=== PATIENT | male | born 1980 | race Caucasian/White ===

== ENCOUNTER 2017-12-20 13:43 | Inpatient (IN) | payer MEDICAID, OTHER ==
[2017-12-20 14:03] VITALS: BMI 25.0
--- NOTE | 2017-12-20 14:42 | RAD ---
Date of service: 12/20/2017 HISTORY: pes COMPARISON: 04/24/2014 FINDINGS: LUNGS: No active pulmonary disease. PLEURA: No significant pleural effusion identified, no pneumothorax apparent. CARDIOVASCULAR: No aortic atherosclerotic calcification present. Normal cardiac size. No pulmonary vascular congestion. OSSEOUS STRUCTURES: No significant abnormalities. VISUALIZED UPPER ABDOMEN: Normal. OTHER FINDINGS: None. IMPRESSION: No active disease.
[2017-12-20 15:26] LABS: URINE BILIRUBIN NEGATIVE (NEGATIVE); URINE BLOOD NEGATIVE (NEGATIVE); URINE GLUCOSE (UA) NEGATIVE (NEGATIVE); URINE LEUKOCYTE ESTERASE NEGATIVE Leu/uL (NEGATIVE); URINE PROTEIN NEGATIVE mg/dL (<30 mg/dL); URINE UROBILINOGEN 0.2 E.U./dL (<1 E.U./dL)
[2017-12-20 15:27] LABS: URINE APPEARANCE CLEAR (CLEAR); URINE COLOR YELLOW (YELLOW)
[2017-12-20 15:52] LABS: BASO # 0.02 K/mm3 (0.0-2.0); BASO % 0.5 % (0.0-3.0); EOS # 0.1 (0.0-0.7); EOS % 1.4 % (1.5-5.0); GRAN # 1.54 (1.4-6.5); GRAN % 41.9 % (50.0-68.0); HEMOGLOBIN 14.1 g/dL (14.0-18.0); LYMPH # 1.6 (1.2-3.4); LYMPH % 43.1 % (22.0-35.0); MEAN CELL VOLUME 87.6 fl (80.0-105.0); MEAN CORPUSCULAR HEMOGLOBIN 28.8 pg (25.0-35.0); MEAN CORPUSCULAR HGB CONC 32.9 g/dl (31.0-37.0); MEAN PLATELET VOLUME 9.6 fl (7.0-11.0); MONO # 0.5 (0.1-0.6); MONO % 13.1 % (1.0-6.0); RBC 4.9 10^6/uL (3.5-6.1); RED CELL DISTRIBUTION WIDTH 13.3 % (11.5-14.5); WHITE BLOOD COUNT 3.7 10^3/uL (4.5-11.0)
[2017-12-20 15:54] LABS: BARBITURATES, UR NEGATIVE (NEGATIVE); BENZODIAZEPINES, UR NEGATIVE (NEGATIVE); OPIATES, UR NEGATIVE (NEGATIVE); PHENCYCLIDINE, UR NEGATIVE (NEGATIVE)
[2017-12-20 16:00] LABS: ACETAMINOPHEN < 10.0 ug/ml (10.0-20.0); SALICYLATE < 1 mg/dL (2.0-20.0)
[2017-12-20 16:01] LABS: ALB/GLOB RATIO 1.3 (1.1-1.8); ALBUMIN 4.4 g/dL (3.0-4.8); ALT/SGPT 35 U/L (7-56); AST/SGOT 24 U/L (17-59); BLOOD UREA NITROGEN 13 mg/dL (7-21); CALCIUM 9.3 mg/dL (8.4-10.5); GFR NON-AFRICAN AMERICAN > 60
--- NOTE | 2017-12-20 16:10 | ED PDOC ---
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 Patient states his neighbor told the police that he has been acting strange. Patient denies headaches dizziness or weakness. Denies fevers or chills. Patient states he is really not sure why he is here. Patient states he was just throwing the garbage out in the next thing he knew the police were at his house. Patient denies suicidal or homicidal ideations. No dizziness or weakness. No other complaints Past Medical History - Provider Review Nursing Documentation Reviewed: Yes - Travel History Have you recently traveled outside [place] w/in the past 3 mons?: No - Past History Past History: No Previous - Psychiatric Hx Psychophysiologic Disorder: Yes Hx Substance Use: No Other/Comment: previous psych admission at [facility] [place] Family/Social History - Physician Review Nursing Documentation Reviewed: Yes Family/Social History: Unknown Family HX Smoking Status: Current Some Days Smoker Hx Alcohol Use: No Hx Substance Use: No Allergies/Home Meds Allergies/Adverse Reactions: Allergies No Known Allergies Allergy (Verified 09/29/15 11:12) Review of Systems - Review of Systems Constitutional: absent: Fatigue, Fevers Respiratory: absent: SOB, Cough Cardiovascular: absent: Chest Pain, Palpitations Gastrointestinal: absent: Abdominal Pain, Constipation, Diarrhea, Nausea, Vomiting Genitourinary Male: absent: Dysuria, Frequency, Hematuria Musculoskeletal: absent: Arthralgias, Back Pain, Neck Pain Skin: absent: Rash, Pruritis Neurological: absent: Headache, Dizziness Psychiatric: absent: Anxiety, Depression, Suicidal Ideation Physical Exam Vital Signs Reviewed: Yes Vital Signs Temp Pulse Resp BP Pulse Ox 12/20/17 14:03 98.5 F 89 18 126/78 98 Temperature: Afebrile Blood Pressure: Normal Pulse: Regular Respiratory Rate: Normal Appearance: Positive for: Well-Appearing, Non-Toxic, Comfortable Pain Distress: None Mental Status: Positive for: Alert and Oriented X 3 - Systems Exam Head: Present: Atraumatic Mouth: Present: Moist Mucous Membranes Neck: Present: Normal Range of Motion Respiratory/Chest: Present: Clear to Auscultation, Good Air Exchange. No: Respiratory Distress, Accessory Muscle Use Cardiovascular: Present: Regular Rate and Rhythm, Normal S1, S2. No: Murmurs Abdomen: No: Tenderness, Distention Upper Extremity: Present: Normal ROM Lower Extremity: Present: Normal ROM Neurological: Present: GCS=15, Speech Normal Skin: Present: Warm, Dry, Normal Color. No: Rashes Psychiatric: Present: Alert, Oriented x 3 Medical Decision Making ED Course and Treatment: 12/20/17 16:06 Patient is nontoxic well-appearing in no distress vital signs are stable. CBC WNL CMP WNL Tylenol WNL Salicylate WNL Alcohol level WNL Urine drug screen + marijuana UA; wnl cxr: wnl ekg: Normal sinus rhythm at 62 bpm normal axis normal intervals no ST elevations pt is medically cleared for PES evaluation Patient was seen and evaluated by PES screener: alexx. Patient signed voluntarily for psychiatric admission Impression; psychotic disorder NOS Admit to behavioral health floor behavioral health - Lab Interpretations Lab Results: 12/20/17 15:30 12/20/17 15:30 Lab Results 12/20/17 15:30: Alcohol, Quantitative < 10 12/20/17 15:30: Salicylates < 1 L, Acetaminophen < 10.0 L 12/20/17 15:30: Sodium 138, Potassium 3.9, Chloride 104, Carbon Dioxide 27, Anion Gap 11, BUN 13, Creatinine 0.7 L, Est GFR ( Amer) > 60, Est GFR (No n-Af Amer) > 60, Random Glucose 91, Calcium 9.3, Total Bilirubin 0.6, AST 24, ALT 35, Alkaline Phosphatase 50, Total Protein 7.8, Albumin 4.4, Globulin 3.4, Albumin/Globulin Ratio 1.3 12/20/17 15:30: WBC 3.7 L, RBC 4.90, Hgb 14.1, Hct 42.9, MCV 87.6, MCH 28.8, MCHC 32.9, RDW 13.3, Plt Count 239, MPV 9.6, Gran % 41.9 L, Lymph % (Auto) 43.1 H, [place] % (Auto) 13.1 H, Eos % (Auto) 1.4 L, Baso % (Auto) 0.5, Gran # 1.54, Lymph # (Auto) 1.6, Bound[place] # (Auto) 0.5, Eos # (Auto) 0.1, Baso # (Auto) 0.02 12/20/17 14:30: Urine Opiates Screen Negative, Urine Methadone Screen Negative, Ur Barbiturates Screen Negative, Ur Phencyclidine Scrn Negative, Ur Amphetamines Screen Negative, U Benzodiazepines Scrn Negative, U Oth Cocaine Metabols Negative, U Cannabinoids Screen Positive H 12/20/17 14:30: Urine Color Yellow, Urine Appearance Clear, Urine pH 6.0, Ur Specific [place] 1.025, Urine Protein Negative, Urine Glucose (UA) Negative, Urine Ketones Trace H, Urine Blood Negative, Urine Nitrate Negative, Urine Bilirubin Negative, Urine Urobilinogen 0.2, Ur Leukocyte Esterase Negative - RAD Interpretation Radiology Orders: 12/20/17 14:14 CHEST PORTABLE [RAD] Stat Disposition/Present on Arrival - Present on Arrival Any Indicators Present on Arrival: No History of DVT/PE: No History of Uncontrolled Diabetes: No Urinary Catheter: No History of Decub. Ulcer: No History Surgical Site Infection Following: None - Disposition Have Diagnosis and Disposition been Completed?: Yes Diagnosis: Bizarre behavior Disposition: HOSPITALIZED Disposition Time: 16:00 Patient Plan: Admission Patient Problems: Current Active Problems Problem Status Onset Bizarre behavior Acute Condition: FAIR
[2017-12-20 17:40] VITALS: O2SAT 99
[2017-12-20] MEDS ORDERED: Magnesium Hydroxide Susp 30 ml UD PO PRN (17:57)
[2017-12-20] MEDS ORDERED: Alum-Mag Hydrox-Simethicone Susp (30 mL) PO PRN (17:57)
--- NOTE | 2017-12-21 06:45 | PCM.BM ---
<Srikanth Keenan - Last Filed: 12/21/17 06:42> Treatment Plan Problems - Problems identified on initial assessmt Delusions Date Initiated: 12/20/17 Time Initiated: 21:00 Assessment reference: NA Status: Active Thought process Date Initiated: 12/20/17 Time Initiated: 21:00 Assessment reference: NA Status: Active Agitated/aggressive Date Initiated: 12/20/17 Time Initiated: 21:30 Assessment reference: NA Status: Active Social isolation Date Initiated: 12/20/17 Assessment reference: NA Status: Active Ineffective coping Date Initiated: 12/20/17 Time Initiated: 21:30 Status: Active Medication adherence Date Initiated: 12/20/17 Time Initiated: 21:00 Assessment reference: NA Status: Active Alteration in emotional status Date Initiated: 12/20/17 Time Initiated: 21:30 Assessment reference: NA Status: Active Guarded behavior Date Initiated: 12/20/17 Assessment reference: NA Status: Active Treatment assets and liabiliti Patient Assests: cooperative Patient Liabilities: financial problems, relationship conflicts - Milieu Protocol Maintain good personal hygiene: daily Encourage regular showers, daily Remind patient to perform daily oral care, daily Assist patient to perform ADL's Maintain personal safety: daily Educate patient to report safety concerns to staff, daily Monitor environment for contraband/sharps Medication safety: Monitor for expected outcome, potential side effects: daily, Assess barriers to learning: daily, Assess readiness for medication education: daily Family Contact Family involvement: Family/SO is involved Family contact: Patient agrees to contact - Goals for Treatment Patient goals for treatment: To go home tomorrow Discharge/Continuing Care - Education Needs Education Needs: Patient Medication, Patient Coping Skills, Patient Community resources - Discharge Discharge Criteria: Free of paranoid thoughts, Normal sleep pattern, Ability to care for self <Sujey Dominguez - Last Filed: 12/21/17 09:02> - Diagnosis (1) Psychosis Status: Acute Interventions: 12/21/17 09:03 Psychoeducation/psychotherapy Psychopharmacology/adjustment of medications as needed/ monitoring possible side effects Evaluate pt on daily basis Compliance with medications and follow up appointments Long acting medication if pt is noncompliant with pill form Suicide and homicide risk assessment and prevention, coping strategies, safety plan Relapse prevention Reduction of symptoms Improve functional status Possible assertive community treatment Cognitive behavioral therapy Family involvement Possible social skill training as outpatient (2) Cannabis abuse Status: Acute Interventions: 12/21/17 09:03 Monitoring withdrawal symptoms Medical detoxification Pharmacotherapy for alcohol/benzos/opioid dependence Maintaining sobriety Relapse prevention Possible rehabilitation Motivational interviewing 12-step programs: AA meetings <Dilia Aguiar Y - Last Filed: 12/22/17 08:38> Family Contact Family involvement: Family/SO is involved Family contact: Patient agrees to contact Family contact name: Germain Sawyre(brother) Family contacted how many times per week?: 2
[2017-12-21 07:27] LABS: BASO # 0.03 K/mm3 (0.0-2.0); BASO % 0.8 % (0.0-3.0); EOS # 0.1 (0.0-0.7); EOS % 2.9 % (1.5-5.0); GRAN # 1.5 (1.4-6.5); GRAN % 40.3 % (50.0-68.0); HEMOGLOBIN 14.2 g/dL (14.0-18.0); LYMPH # 1.6 (1.2-3.4); LYMPH % 43.7 % (22.0-35.0); MEAN CELL VOLUME 88.4 fl (80.0-105.0); MEAN CORPUSCULAR HEMOGLOBIN 28.3 pg (25.0-35.0); MEAN PLATELET VOLUME 9.7 fl (7.0-11.0); MONO # 0.5 (0.1-0.6); MONO % 12.3 % (1.0-6.0); RBC 5.02 10^6/uL (3.5-6.1); RED CELL DISTRIBUTION WIDTH 13.3 % (11.5-14.5); WHITE BLOOD COUNT 3.7 10^3/uL (4.5-11.0)
[2017-12-21 07:51] LABS: LDL CHOLESTEROL 93 mg/dL (0-129)
[2017-12-21 07:58] LABS: FREE T4 1.13 ng/dL (0.78-2.19)
[2017-12-21 08:02] LABS: ALB/GLOB RATIO 1.3 (1.1-1.8); ALBUMIN 4.2 g/dL (3.0-4.8); ALT/SGPT 27 U/L (7-56); AST/SGOT 25 U/L (17-59); BLOOD UREA NITROGEN 15 mg/dL (7-21); CALCIUM 9.2 mg/dL (8.4-10.5); GFR NON-AFRICAN AMERICAN > 60; HDL CHOLESTEROL 48 mg/dL (29-60)
--- NOTE | 2017-12-21 14:49 | CARD ---
APPROVED REPORT Date of service: 12/20/2017 EKG Measurement Heart [id number] <Conclusion> Normal sinus rhythm Normal ECG
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
--- NOTE | 2017-12-22 20:08 | CON ---
DATE OF CONSULTATION: 12/22/2017 The patient was admitted in the psychiatric floor because of abnormal thoughts, was brought in by the police to the emergency room for evaluation. HISTORY OF PRESENT ILLNESS: The patient is a 37-year-old male, came recently from [place] over the last couple of years. He has been complaining that his neighbor is making black magic to him and that he puts things in his house and he wants to get a hold of his kids because he is jealous from him and he has to get that magic out of the house in order to protect his children. The patient has these thoughts and he also had the appointment, but found the police in front of his house and brought him to the ER for evaluation. There is no much history exactly what happened at his house, but that is what the patient thinks and that is what happened. The patient denied any physical complaints. He has no pain. He has no headaches, no fever, no other complaints. He does not take any medication on a regular basis. No history of any psychiatric admissions in [place] or an incidence or problem in , exactly what happened is unclear, but he was signed himself out probably and indicates a very serious behavioral disorder to get him out and to sign himself out due to his severe illness. We will need to contact the family to know more about that. PAST MEDICAL HISTORY: None. Only one admission to [facility] for psychiatric evaluation with psychotic features. Otherwise, he has no medical problems. FAMILY HISTORY: He has brother. He has his father. No family history and no brother or sister or father with psychiatric disease. SOCIAL HISTORY: He does smoke. He does use marijuana on weekends once or twice a week and does not know how much he smokes and how long he had smoked, but it seems he is using it on a regular basis. He is not using any alcohol or any other drugs. He smokes maybe a pack or less cigarettes a day. He lives with his and children. 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 According to him, he does that here, unclear what kind of business, but it seems he has enough supportive salary. MEDICATIONS: None. ALLERGIES: NO KNOWN ALLERGIES. REVIEW OF SYSTEMS: Physically, he has no complaint. No GI. No respiratory. No suicidal mentally and no focal weakness. No dysuria. No GI problems. Eating well and sleeping well. PHYSICAL EXAMINATION: VITAL SIGNS: In the hospital, 12/21/2017, temperature 98, heart rate 75, blood pressure 115/60, and respirations 20. HEENT: Head and neck exam normal. No JVD. No thyromegaly. CHEST: Clear bilaterally. CARDIAC: First sound and second sound normal. No murmur, rub or gallop. ABDOMEN: Soft and nontender. EXTREMITIES: No edema. NEUROLOGIC: Normal. GENERAL: The patient seems well nourished in good physical conditions and no distress. LABORATORY DATA: Laboratory here was done and it shows white count 3.7, hemoglobin 14.1, hematocrit 42 and platelets 239,000. Chemistry: Sodium 138, potassium 3, chloride 104, bicarb 27, BUN 13, and creatinine 0.7. Kidney function is normal. Liver function test is normal. Thyroid function test is normal. His cholesterol is normal at 93. Also, he had a urine drug screen, which shows normal urinalysis, but the urine drug screen shows positive for cannabis, negative for everything else. No alcohol nothing. Serology, RPR is negative. IMPRESSION: This is a 37-year-old male, stable medically. He does have a history of abnormal thoughts, features of psychotic thinking, people making magic to him, consistent with psychotic features, presence of marijuana in the urine and otherwise medically stable. DIAGNOSES: 1. 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 2. History of tobacco abuse. 3. Marijuana drug use. PLAN: The patient will be retained on the current medications as per psychiatric assessment and evaluation. He does not have any medical illness except his thought processes, thyroid function is normal, blood work is normal, and that is either substance induced psychosis versus primary psychiatric disorder. He has a questionable history of the [employer] of psychotic problems, so we may need to get more history to see if this is a recurrent primary psychiatric disorder versus substance induced versus primary psychiatric disorder getting worse with drug use. We will continue current therapy. We will follow up clinically. George Chavez MD [facility] # [phone]
--- NOTE | 2017-12-23 17:14 | PN ---
DATE: 12/22/2017 SUBJECTIVE: The patient is medically stable, no distress, slept okay and no other complaints. PHYSICAL EXAMINATION: VITAL SIGNS: Temperature 97.6, heart rate is 59, blood pressure 114/77, respiration 20. HEAD AND NECK: Normal. No JVD, no thyromegaly. CHEST: Clear bilaterally. CARDIAC: First sound and second sound normal. ABDOMEN: Soft, nontender. EXTREMITIES: No edema. NEUROLOGIC: Normal. LABORATORY DATA: Shows white count 3.7, hemoglobin 14.2, hematocrit 44.4 an d platelets 245. Chemistry shows sodium 141, potassium 4.1, chloride 106, bicarb 27, BUN 15, creatinine 0.8. His LFTs are normal, he states he has normal 0.85 and free T4 is normal 1.13. LDL 93. IMPRESSION AND PLAN: 1. 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 Right now, the patient is currently getting antipsychotic therapy including risperidone 1 mg in the morning and at night, seems doing well and also getting Ativan p.r.n. and b.i.d. Seems stable and the patient also getting Haldol 5 mg IM every 6 hours p.r.n. 2. For insomnia, Sonata 5 mg at bedtime and he is doing well. Continue current therapy. Continue Tylenol p.r.n., milk of magnesia and follow up on Apolinar Bansal. George Chavez MD
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
--- NOTE | 2017-12-24 12:25 | PN ---
DATE: 12/23/2017 SUBJECTIVE: The patient clinically still complains of psychotic episodes about people in the hospital and outside are having him. We tried to control him and still have the same symptoms. Physically, patient has no new complaints. He is eating good, sleeping good. PHYSICAL EXAMINATION: VITAL SIGNS: Temperature 97.6, heart rate is 100, blood pressure 115/82, respirations 20. HEAD AND NECK: Normal. No JVD. No thyromegaly. CHEST: Clear bilaterally. CARDIAC: First sound and second sound normal. ABDOMEN: Soft, nontender. EXTREMITIES: No edema. NEUROLOGIC: Normal. IMPRESSION AND PLAN: 1. Psychosis, no suicidality, here still has delusions and psychotic symptoms. We will continue to monitor with the psychiatrist, spoke with Dr. Rm. 2. Physically, the patient is stable and has normal labs. We will continue to follow up with you. Communication and translation was done to Dr. Rm about his psychiatric condition. George Chavez MD
--- NOTE | 2017-12-24 19:14 | PCM.PYCHPN ---
Psychiatric Progress Note - Psychiatric Progress Note Patient seen today, length of contact: 30 minutes Problems Identified/Issues Discussed: I reviewed assessment and recent notes on the unit. Patient was interviewed in the dayroom. He is groomed, superficially friendly and a little guarded upon my introduction. He attempts to be agreeable and smiles during questioning however just ends up appearing oddly related. Patient minimizes or completely evades the set the events that led to this admission. Patient tells me that he took his family out on the balcony for fresh air however report indicates that acute paranoia and delusions led to this behavior. His psychosis was verified by multiple people during this admission. He deliberately avoids the topic of black magic, pretending not to know anything about it. Patient believes his neighbor is out to get him because his children are loud when they play. He has 4 small young children at home from ages 13 yo to 8 yo. His brother resides in their 2 family home and his brother also has 4 young children. Presently he denies any new concerns except for wanting to be discharged. He doesn't believe he has any psychiatric issues. I/J are poor. Patient has enough insight, paranoia and organization to minimize or completely refute events prior to admission however it is this type of organization as well as duplicity that presents this patient as a danger to his family, especially to the 8 young children living within the home. There are multiple recent and consistent notes from staff, social work, clinicians and Dr. Dominguez describing patient's delusions and his ability and willingness to act on his delusions. Further treatment is also prudent in consideration of his 2 recent hospitalizations at two different psychiatric facilities within such a short period of time. Diagnostic Results: Paranoid Schizophrenia Medication Change: Yes (Risperdal increased and switched to liquid form) Medical Record Reviewed: Yes Mental Status Examination - Cognitive Function Orientation: Person, Place, Situation Memory: Impaired Attention: Poor Concentration: Poor Association: Loose Fund of Knowledge: Poor - Mood Mood: Depressed, Anxious - Affect Affect: Constricted, Flat, Other (odd) - Formal Thought Process Formal Thought Process: Hallucinations (denied), Delusions, Paranoia, Loosening of associations, Circumstantial - Suicidal Ideation Suicidal Ideation: No - Homicidal Ideation Homicidal Ideation: No Goal/Treatment Plan - Goal/Treatment Plan Need for Continued Stay: Remain at risks for inpatient hospitalization, Severe depression anxiety, Discharge may exacerbated symptoms, Severe functional impairment Progress Toward Problem(s) and Goals/Treatment Plan: * c/w current tx and plan * Risperdal 1 mg AMHS will be increased to 2 mg AMHS for psychosis * Cogentin 1 mg AMHS for EPS prophylaxis * Ativan 0.5 mg BID, HS for anxiety * Sonata 5 mg HS prn: insomnia * No new lab results thus far * Vitals reviewed and noted below: 12/23/17 12/23/17 07:03 16:00 Temperature 97.6 F Pulse Rate 100 H 78 Respiratory 20 Rate Blood Pressure 115/82 114/75 * Requested 2nd screening by [facility] for involuntary commitment Further treatment is prudent in consideration of his 2 recent hospitalizations at two different psychiatric facilities within such a short period of time Patient has enough insight, paranoia and organization to minimize or completely refute events prior to admission however it is this type of organization as well as duplicity that presents this patient as a danger to his family, especially to the 8 young children living within the home. There are multiple recent and consistent notes from staff, social work, clinicians and Dr. Dominguez describing patient's delusions and his ability and willingness to act on his delusions. . Estimated Date of D/C: 01/01/18
[2017-12-25 07:09] VITALS: RESP 20
--- NOTE | 2017-12-25 11:56 | PN ---
DATE: 12/24/2017 SUBJECTIVE: The patient is on psych floor, seems comfortable at this time, he is eating, he is in no distress. He still expresses seems better, more slow. His taken medication make him sleepy, but he is accepting that. He does not have any suicidal or homicidal thoughts to anybody, he just wants to live in peace and nobody bother him. Otherwise the patient physically has no complaint. PHYSICAL EXAMINATION: VITAL SIGNS: Temperature 97.3, heart rate 91, blood pressure 122/76, respirations 20. HEAD AND NECK: Normal. No JVD, no thyromegaly. CHEST: Clear, good air entry. CARDIAC: First sound and second sound normal. ABDOMEN: Soft, nontender. EXTREMITIES: No edema. NEUROLOGIC: Normal. IMPRESSION AND PLAN: 1. 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 The patient is stable. He does not have any suicidal or homicidal ideation or any sense of anger or retaliation to anybody, but he is just feeling the thoughts of magic and he has to get the magic out and protect his kids. Otherwise there is nothing new. So, we will continue current therapy as per psychiatrist for psychosis, schizophrenia. The patient does have a history when he was in the 20s of some psychotic disorder probably schizophrenia. 2. Physically, the patient seems doing okay, has no new complaints. Insomnia, has been getting Sonata and seems doing well with the current medications. Current medications: Ativan 0.5 mg b.i.d. and 0.5 at bedtime and you have 2 mg p.o. every 6 hours p.r.n. plus IM every 6 hours p.r.n. The patient also get Haldol 5 mg p.o. or IM if needed, getting magnesium and getting Risperdal 2 mg in the morning and at night and Sonata 5 mg at bedtime, Tylenol p.r.n. The patient also getting Cogentin 1 mg p.o. b.i.d. Continue current therapy. We will follow up with the psychiatrist and with the translation. The patient is physically and medically stable. Continue current psych therapy. George Chavez MD
[2017-12-25 17:10] VITALS: BP 110/65; PULSE 78; TEMP 97.6
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
--- NOTE | 2017-12-26 08:57 | PN ---
DATE: 12/25/2017 SUBJECTIVE: The patient is comfortable physically, no distress, mentally seems stable. No suicidal or homicidal thoughts. Seems stable. He is eating and sleeping well. PHYSICAL EXAMINATION: VITAL SIGNS: Temperature 97.6, heart rate 78, blood pressure 110/65, respirations 20. HEAD AND NECK: Normal. NECK: No JVD, no thyromegaly. CHEST: Clear bilaterally. CARDIAC: First sound and second sound normal. No murmur, rub or gallop. ABDOMEN: Soft, nontender. EXTREMITIES: No edema. NEUROLOGICAL: Stable. IMPRESSION AND PLAN: 1. Paranoia and schizophrenia, stable. Continue current medications, some leukopenia probably that is baseline. 2. The patient also has history of substance use disorder, marijuana. 3. Tobacco use disorder addiction. The patient will be discharged by the psychiatrist and will follow up with me within a week. George Chavez MD
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
== END 2017-12-25 22:30 | disposition left against medical advice (07) | DRG 750 ==
LOC: ED 13:43 → ERH 15:53 → PSYC 17:45
PROVIDERS: ADMIT Psychiatry & Neurology Psychiatry; ATTEND Psychiatry & Neurology Psychiatry
DX: F20.0 Paranoid schizophrenia (principal); F11.259 Opioid dependence with opioid-induced psychotic disorder, unspecified; D72.819 Decreased white blood cell count, unspecified; F12.159 Cannabis abuse with psychotic disorder, unspecified; F41.9 Anxiety disorder, unspecified; F17.210 Nicotine dependence, cigarettes, uncomplicated; G47.00 Insomnia, unspecified